=== PATIENT | female | born 1995 | race Caucasian/White ===

== ENCOUNTER 2017-08-28 09:38 | Emergency (ER) | payer BC ==
[~2017-08-28] VITALS: Ht 160 cm; Wt 44.6 kg
[~2017-08-28 09:38] MED LIST: BCPILLS PO
[2017-08-28 09:42] VITALS: Ht 160 cm; Wt 44.6 kg
[2017-08-28] MEDS ORDERED: METHYLPREDNISOLONE 125 MG VIAL IV STA (09:58)
[2017-08-28] MEDS ORDERED: ALBUT/IPRATROP 3MG/0.5MG NEB 3 ML VIAL INH ONE (10:00)
--- NOTE | 2017-08-28 10:21 | EMERGENCY ROOM VISIT NOTE ---
History Report prepared by Titus: Kevin Hobson Under the Supervision of: Dr. Augusto Smith M.D. First contact with patient: 09:50 Chief Complaint: RESPIRATORY PROBLEMS Stated Complaint: ASTHMA Nursing Triage Summary: Pt presents with c/o asthma exacerbation. Pt reports chest tightness, wheezing, NPC. Sx began 1.5 days ago. Used inhaler and neb without relief. History of Present Illness The patient is a 22 year old female who presents to the Emergency Room with complaints of worsening shortness of breath beginning two days ago. She also complains of chest "tightness" and mild cough. The patient has a history of asthma, and states that her current symptoms feel like an asthma exacerbation. She states that she has had a few asthma flare ups within the past few months. She has a rescue inhaler at home but states that nothing has improved her symptoms. The patient was seen at [facility] for her symptoms just prior to arrival and received a nebulizer treatment. She was referred to the ED for further evaluation after the nebulizer did not help her symptoms. She denies fevers, nausea, vomiting, diarrhea, headache, abdominal pain, leg swelling, sore throat , or urinary symptoms. The patient denies chance of . She denies recent travel. Source of History: patient Onset: Two days ago Quality: other (shortness of breath) Timing: worsening Modifying Factors (Relieving): other (none) Associated Symptoms: + cough (mild), + chest pain ("tightness"), No fevers, No headache, No nausea, No vomiting, No abdominal pain, No diarrhea, No urinary symptoms Note: The patient denies leg swelling. Review of Systems See HPI for pertinent positives & negatives. A total of 10 systems reviewed and were otherwise negative. Past Medical & Surgical Medical Problems: (1) UTI (urinary tract infection) Old medical records were attempted to be reviewed but there are no old records at this hospital. Nurse's notes were reviewed and I agree with. Family History No significant family history Social History Smoking Status: Never Smoker Drug Use: none Marital Status: single Housing Status: lives with friends Occupation Status: [employer] student Current/Historical Medications Scheduled Control Pills ( Control Pills), 1 TAB PO DAILY Bupropion (Wellbutrin), Unknown Dose PO DAILY Paroxetine (Paroxetine HCl), 30 MG PO DAILY Scheduled PRN Albuterol Sulf (Proventil 0.083% 2.5MG/3ML), 2.5 MG INH Q4 PRN for SOB/Wheezing Allergies Coded Allergies: NUTS (Unverified Allergy, Unknown, ANAPHYLAXIS, 08/28/17) WALNUT AND PECANS Physical Exam Vital Signs Date Time Temp Pulse Resp B/P (MAP) Pulse Ox O2 Delivery O2 Flow Rate FiO2 08/28/17 12:22 123 18 123/95 96 Room Air 08/28/17 11:21 37.0 124 18 124/99 99 Room Air 08/28/17 10:41 102 08/28/17 10:31 101 16 121/87 100 Room Air 5.0 08/28/17 10:26 100 16 99 Room Air 08/28/17 09:42 97 Room Air 08/28/17 09:42 36.8 116 20 115/73 96 Room Air Physical Exam General: Mildly-ill appearing young female in no acute distress. HEENT: Normal cephalic atraumatic. Pupils are equal round and reactive to light. Extraocular movements are intact. Oropharynx is pink with moist mucous membranes. No swelling of the mouth lips or tongue. Neck: Supple with a midline trachea. No meningeal signs or stiffness, no JVD or bruits. No Stridor. Chest: Scattered wheezing with decreased breath sounds. Heart: Tachycardic but regular. Abdomen: Soft nontender, nondistended without rebound guarding or rigidity. Extremities: No cyanosis clubbing or edema. No calf tenderness or assymetry Spine/Back. Non tender to palpation. No CVA tenderness Skin: Good turgor without rashes. Neurologic exam: Cranial nerves two through 12 are intact. Motor and sensation are intact and symmetrical throughout. Medical Decision & Procedures ER Provider Diagnostic Interpretation: Radiology results as stated below per my review and radiologist interpretation: SINGLE VIEW CHEST FINDINGS: An AP, portable, upright chest radiograph is obtained. No prior studies are available for comparison at the time of dictation. The examination is mildly degraded by portable technique and patient rotation. The cardiomediastinal silhouette is unremarkable. The lungs and pleural spaces are clear. No pneumothorax is seen. The bony thorax is grossly intact. Bilateral nipple piercings are noted. IMPRESSION: No active disease in the chest. Electronically signed by: Raymond Carvalho M.D. 08/28/2017 10:25 AM Laboratory Results 08/28/17 10:10 Red Blood Count 4.57, Mean Corpuscular Volume 84.7, Mean Corpuscular Hemoglobin 28.9, Mean Corpuscular Hemoglobin Concent 34.1, Mean Platelet Volume 8.6, Neutrophils (%) (Auto) 74.9, Lymphocytes (%) (Auto) 12.6, Monocytes (%) (Auto) 5.7, Eosinophils (%) (Auto) 6.2, Basophils (%) (Auto) 0.2, Neutrophils # (Auto) 13.39, Lymphocytes # (Auto) 2.26, Monocytes # (Auto) 1.01, Eosinophils # (Auto) 1.10, Basophils # (Auto) 0.04 08/28/17 10:10 Test 08/28/17 10:10 White Blood Count 17.87 K/uL (4.8-10.8) Red Blood Count 4.57 M/uL (4.2-5.4) Hemoglobin 13.2 g/dL (12.0-16.0) Hematocrit 38.7 % (37-47) Mean Corpuscular Volume 84.7 fL (80-100) Mean Corpuscular Hemoglobin 28.9 pg (25-34) Mean Corpuscular Hemoglobin Concent 34.1 g/dl (32-36) Platelet Count 449 K/uL (130-400) Mean Platelet Volume 8.6 fL (7.4-10.4) Neutrophils (%) (Auto) 74.9 % Lymphocytes (%) (Auto) 12.6 % Monocytes (%) (Auto) 5.7 % Eosinophils (%) (Auto) 6.2 % Basophils (%) (Auto) 0.2 % Neutrophils # (Auto) 13.39 K/uL (1.4-6.5) Lymphocytes # (Auto) 2.26 K/uL (1.2-3.4) Monocytes # (Auto) 1.01 K/uL (0.11-0.59) Eosinophils # (Auto) 1.10 K/uL (0-0.5) Basophils # (Auto) 0.04 K/uL (0-0.2) RDW Standard Deviation 45.1 fL (36.4-46.3) RDW Coefficient of Variation 14.5 % (11.5-14.5) Immature Granulocyte % (Auto) 0.4 % Immature Granulocyte # (Auto) 0.07 K/uL (0.00-0.02) D-Dimer 260 ug/L FEU (0-500) Anion Gap 8.0 mmol/L (3-11) Est Creatinine Clear Calc Drug Dose 79.0 ml/min Estimated GFR () 124.2 Estimated GFR (Non- 107.2 BUN/Creatinine Ratio 14.9 (10-20) Calcium Level 9.3 mg/dl (8.5-10.1) Human Chorionic Gonadotropin, Qual NEG (NEG) Laboratory studies as stated above per my review. Medications Administered Medications (Trade) Dose Ordered Sig/Mumtaz Route Start Time Stop Time Status Last Admin Dose Admin Methylprednisolone Sodium Succinate (Solu-Medrol IV) 125 mg NOW STAT IV 08/28/17 09:58 08/28/17 10:03 DC 08/28/17 10:11 125 MG Albuterol/ Ipratropium (Duoneb) 12 ml ONE ONCE INH 08/28/17 10:00 08/28/17 10:03 DC 08/28/17 10:25 12 ML ED Course 0951: Past medical records reviewed. The patient was evaluated in room C5, and a complete history and physical examination were performed. 0958: Ordered Solu-Medrol 125 mg IV. 1000: Ordered DuoNeb 12 mL INH. 1030: I reassessed the patient. She appears comfortable. 1120: I checked in on the patient. She is receiving her nebulizer treatment. 1205: Upon reevaluation, the patient is resting comfortably. I discussed the results and treatment plan with her. She verbalized agreement of the treatment plan. The patient was discharged home. Medical Decision Differentials include, but are not limited to; asthma exacerbation, pneumonia, pneumothorax, PE, infection and electrolyte or metabolic abnormality. This patient has a history of asthma and comes in after having an asthma exacerbation. She is short of breath. On exam she does have wheezes and diminished breath sounds although does not appear to be in any significant distress or hypoxemic. IV access established was given Solu-Medrol 125 mg IV. She was given an hour-long neb. Chest x-rays obtained as well as blood work. She was reassessed frequently. He is feeling significantly better. Chest x- ray was unremarkable and shows no pneumonia or pneumothorax or CHF. Her d- dimer is within normal limits and a low pretest probably said he makes PE highly unlikely. She's had no acute electrode or metabolic abnormalities. She' s had nothing to suggest infection. Her peak flow did improve from the 100s to over 220. She has no idea what her baseline is. I had her walk around the ER several times and she has no significant shortness breath she feels much better on exam she still some residual wheezes but is much moving much better air. I offered admission but she declines and think she is much better I did have her block and case maker help her arrange to get albuterol nebulizer home and wrote her for some prescription for this. She will also be started on prednisone 50 mg a day for the next 4 days starting tomorrow. She was happy with the plan and discharged home. She should return if worsening symptoms, shortness breath, any new problems or concerns Note: While dictating this chart around 6:30 PM I noted that I inadvertently left off the prescription for prednisone. I called and talked to the patient. She is doing well and feeling better. She gave me the contact information for her pharmacy and I called in the prednisone 50 mg for the next 4 days to [facility] pharmacy [address] she will pick it up and start this tomorrow. Medication Reconcilliation Current Medication List: was personally reviewed by me Blood Pressure Screening Patient's blood pressure: Normal blood pressure Blood pressure disposition: Did not require urgent referral Impression Primary Impression: Asthma exacerbation Additional Impression: Shortness of breath Scribe Attestation The scribe's documentation has been prepared under my direction and personally reviewed by me in its entirety. I confirm that the note above accurately reflects all work, treatment, procedures, and medical decision making performed by me. Departure Information Dispostion Home / Self-Care Prescriptions Albuterol Sulf (PROVENTIL 0.083% 2.5MG/3ML) 2.5 Mg/3 Ml Nebu 2.5 MG INH Q4 Y for SOB/Wheezing, #50 EA Prov: Augusto Smith M.D. 08/28/17 Referrals No Doctor, Assigned (PCP) Forms HOME CARE DOCUMENTATION FORM, IMPORTANT VISIT INFORMATION, WORK / SCHOOL INSTRUCTIONS Patient Instructions My [facility] [employer] Additional Instructions Rest. Drink plenty of fluids. Return if: Worsening of symptoms, increasing shortness of breath, any new problems or concerns continue to use your albuterol inhaler as needed Continue steroids with prednisone 50 mg once a day for 4 more days. Follow-up with the student [facility] on Thursday for recheck or return here over the weekend if symptoms worsen Problem Qualifiers
[2017-08-28 10:26] VITALS: PULSE 100; O2SAT 99
--- NOTE | 2017-08-28 10:27 | DIAGNOSTIC IMAGING REPORT ---
SINGLE VIEW CHEST CLINICAL HISTORY: Atypical chest pain. FINDINGS: An AP, portable, upright chest radiograph is obtained. No prior studies are available for comparison at the time of dictation. The examination is mildly degraded by portable technique and patient rotation. The cardiomediastinal silhouette is unremarkable. The lungs and pleural spaces are clear. No pneumothorax is seen. The bony thorax is grossly intact. Bilateral nipple piercings are noted. IMPRESSION: No active disease in the chest. Electronically signed by: Raymond Carvalho M.D. 08/28/2017 10:25 AM Dictated Date/Time: 08/28/2017 10:25 AM
[2017-08-28] MEDS ORDERED: BUPR75TA20 PO (10:32)
[2017-08-28] MEDS ORDERED: PXL20 PO (10:32)
[2017-08-28 10:38] LABS: BASO % 0.2 %; BASO ABS # 0.04 K/uL (0-0.2); EOS % 6.2 %; HEMATOCRIT 38.7 % (37-47); HEMOGLOBIN 13.2 g/dL (12.0-16.0); IG# 0.07 K/uL (0.00-0.02); LYMPH % 12.6 %; LYMPH ABS # 2.26 K/uL (1.2-3.4); MEAN CELL VOLUME 84.7 fL (80-100); MEAN CORPUSCULAR HEMOGLOBIN 28.9 pg (25-34); MEAN CORPUSCULAR HGB CONC 34.1 g/dl (32-36); MEAN PLATELET VOLUME 8.6 fL (7.4-10.4); MONO % 5.7 %; MONO ABS # 1.01 K/uL (0.11-0.59); NEUT % 74.9 %; NEUT ABS # 13.39 K/uL (1.4-6.5); PLATELET COUNT 449 K/uL (130-400); RED CELL DISTRIBUTION WIDTH CV 14.5 % (11.5-14.5); RED CELL DISTRIBUTION WIDTH SD 45.1 fL (36.4-46.3); WHITE BLOOD COUNT 17.87 K/uL (4.8-10.8)
[2017-08-28 10:54] LABS: CALCIUM 9.3 mg/dl (8.5-10.1); CREATININE 0.78 mg/dl (0.60-1.20); POTASSIUM 4.1 mmol/L (3.5-5.1)
[2017-08-28 11:21] VITALS: TEMP 37
[2017-08-28 12:22] VITALS: BP 123/95; PULSE 123; O2SAT 96
[2017-08-28] MEDS ORDERED: ALBINS/ INH (12:29)
== END 2017-08-28 12:51 | disposition home or self-care (01) ==
LOC: C.EDB 09:40 → C.EDC 12:51
DX: J45.901 Unspecified asthma with (acute) exacerbation (principal); Z87.440 Personal history of urinary (tract) infections; Z79.3 Long term (current) use of hormonal contraceptives; Z79.899 Other long term (current) drug therapy

== ENCOUNTER 2017-11-03 17:04 | Inpatient (IN) | payer BC ==
[~2017-11-03] VITALS: Ht 157.5 cm; Wt 44.5 kg
[~2017-11-03 17:04] MED LIST changes: +ALBINS/ INH; +BUPR75TA20 PO; +PXL20 PO
[2017-11-03] MEDS ORDERED: SODIUM CHLORIDE 0.9% 1000ML 1,000 ML IV STA (17:21)
[2017-11-03] MEDS ORDERED: METHYLPREDNISOLONE 125 MG VIAL IV STA (17:21)
[2017-11-03 17:24] VITALS: PULSE 147; O2SAT 94
[2017-11-03] MEDS ORDERED: ALBUT/IPRATROP 3MG/0.5MG NEB 3 ML VIAL INH ONE ×2 (17:30→20:00)
--- NOTE | 2017-11-03 17:32 | DIAGNOSTIC IMAGING REPORT ---
CHEST ONE VIEW PORTABLE HISTORY: 22 years-old Female a9b acute difficulty breathing COMPARISON: Chest radiograph 08/28/2017 TECHNIQUE: Portable AP view the chest FINDINGS: Cardiomediastinal and hilar silhouettes are within normal limits. No pneumothorax, pleural effusion, focal airspace consolidation or overt pulmonary edema. Bones of the chest appear grossly intact. Mild levoscoliosis of the lumbar spine is partially imaged. IMPRESSION: No acute process. The above report was generated using voice recognition software. It may contain grammatical, syntax or spelling errors. Electronically signed by: Jourdan Wesley M.D. 11/03/2017 5:30 PM Dictated Date/Time: 11/03/2017 5:29 PM
[2017-11-03 17:39] LABS: BASO % 0.3 %; BASO ABS # 0.06 K/uL (0-0.2); EOS % 0.9 %; EOS ABS # 0.15 K/uL (0-0.5); HEMATOCRIT 40.2 % (37-47); HEMOGLOBIN 13.7 g/dL (12.0-16.0); IG# 0.07 K/uL (0.00-0.02); LYMPH % 17.5 %; LYMPH ABS # 3.01 K/uL (1.2-3.4); MEAN CELL VOLUME 84.5 fL (80-100); MEAN CORPUSCULAR HEMOGLOBIN 28.8 pg (25-34); MEAN CORPUSCULAR HGB CONC 34.1 g/dl (32-36); MEAN PLATELET VOLUME 9.2 fL (7.4-10.4); MONO % 7.6 %; MONO ABS # 1.31 K/uL (0.11-0.59); NEUT % 73.3 %; NEUT ABS # 12.58 K/uL (1.4-6.5); PLATELET COUNT 460 K/uL (130-400); RED CELL DISTRIBUTION WIDTH CV 13.9 % (11.5-14.5); WHITE BLOOD COUNT 17.18 K/uL (4.8-10.8)
--- NOTE | 2017-11-03 17:44 | EMERGENCY ROOM VISIT NOTE ---
ED Visit Note First contact with patient: 17:16 CHIEF COMPLAINT: Shortness of breath, wheezing HISTORY OF PRESENTING ILLNESS: This is a 22-year-old female who presents to the emergency department with complaint of shortness of breath and wheezing for the past week. She states she has a history of asthma, she has been using her albuterol inhaler at home, but states she ran out yesterday. She states that her symptoms have gotten progressively worse and today she has been having a lot of trouble breathing and inability to catch her breath. She states this is her fourth asthma exacerbation in the past year, she was previously seen in this emergency department 2 months ago. She is not currently on any medications or daily inhalers to manage her asthma, and states that she does not have an established primary care provider at this time. She denies any recent fevers or chills, denies URI symptoms, denies chest pain, dizziness, or syncope. She denies any recent headaches, neck pain or stiffness, back pain, abdominal pain, nausea or vomiting, bowel or bladder issues, or unusual rash. She does not smoke. REVIEW OF SYSTEMS: A complete 10 point review of systems was reviewed with the patient with pertinent positives and negatives as per history of present illness. All else were negative. PAST MEDICAL HISTORY: Asthma SOCIAL HISTORY: Lives at home. She is a [employer] student. She denies tobacco use, alcohol or recreational drug use. ALLERGIES: Reviewed in chart. PHYSICAL EXAM: CONSTITUTIONAL: Pleasant and cooperative. Moderate respiratory distress noted with tachypnea, accessory muscle use, and tripod posturing. Mildly dehydrated. HEENT: Normocephalic, atraumatic. Pupils equal, round and reactive to light, EOMI. TMs normal. Pharynx normal. Tacky mucous membranes. NECK: Supple, full active range of motion without discomfort. No cervical adenopathy. RESPIRATORY: Significantly diminished to auscultation bilaterally with inspiratory and expiratory wheezing. No crackles, rhonchi or stridor. Tachypnea. Labored breathing with accessory muscle use. Speaking in short sentences. Equal expansion bilaterally. CARDIOVASCULAR: Significantly tachycardic. Regular rhythm with no murmurs, rubs or gallops. Normal peripheral perfusion. No edema. GASTROINTESTINAL: Soft, nontender, nondistended. No palpable masses or HSM. Bowel sounds present in all quadrants. MUSCULOSKELETAL: Full range of motion of all joints without discomfort. No calf swelling or tenderness. INTEGUMENTARY: No rash or other significant dermatologic conditions noted. NEUROLOGIC: Alert and oriented X 4 with normal affect. Normal strength and sensation in all 4 extremities. No focal neurologic deficits noted. Normal speech. ED COURSE AND MEDICAL DECISION MAKING: CC: Patient presenting with complaint of shortness of breath and wheezing DIFFERENTIAL DIAGNOSIS: Includes, but not limited to asthma exacerbation, acute respiratory failure, bronchitis, pneumonia, pneumothorax, PE, aspiration, among others. INTERPRETATION OF LABS: Leukocytosis, no anemia, no significant electrolyte abnormalities, normal renal function, normal liver enzymes. ABG pending. IMAGING: Chest x-ray reviewed by myself and radiologist and shows hyperventilation with no other acute abnormalities by my interpretation. EKG: Sinus tachycardia with a rate of 134bpm, left axis deviation by my interpretation. No previous EKGs available for comparison. MEDICATION RECONCILIATION: I attest that I have personally reviewed the patient 's current medication list. INITIAL VITAL SIGNS REVIEW: I reviewed the patient's initial vital signs and interpret them as follows: T: Afebrile; BP: Hypertensive; HR: Tachycardic; RR : Tachypneic; Pulse Ox: Hypoxic at 71% on room air, improved to 94% on 4 L nasal cannula. Blood pressure screening: The patient was found to have an elevated blood pressure and was referred to the inpatient team for further management. SUMMARY: Patient was evaluated at bedside, history and physical exam performed. Patient is alert and oriented, notably in respiratory distress with tachypnea, labored breathing, tripod posturing, and hypoxia on room air. Patient's oxygen saturation initially 71% on room air, she was placed on 4 L nasal cannula and improved to the low 90s. Lungs are significantly diminished on initial exam with inspiratory and expiratory wheezes. Patient was placed on hour-long DuoNeb treatment. IV established and she was given 125 mg of Solu-Medrol IV and 2g Mag Sulfate IV. NSS bolus started for hydration. EKG reviewed at bedside, noting sinus tachycardia. Patient was placed on the quality assurance monitor chassis and monitored throughout the entire extent of their stay. In addition, the patient's pulse oximetry was monitored throughout the entire stay. Any abnormalities or aberrancies were addressed appropriately. Patient was closely monitored at the bedside by myself, noting some improvement after neb treatment started. She is moving air better with increased expiratory wheezes heard, and states her breathing feels improved. Patient discussed with Dr. Lynn, who agrees with my assessment and plan. Labs and imaging reviewed as above, noting leukocytosis which is suspected to be stress-induced. No pneumonia on chest x-ray Patient symptoms are consistent with an acute exacerbation of severe recurrent asthma. Patient reassessed multiple times throughout ED stay, she does feel much improved compared to when she arrived, but continues with diffuse wheezing and noted to drop her sats to the low 80s when taken off of oxygen. I spoke with Dr. Goldman, [facility] hospitalist, who agrees to evaluate the patient for admission. Patient was updated on all results and plan for admission, she verbalized understanding and was agreeable to this plan. Patient was stable at time of admission. Problem List Medical Problems: (1) UTI (urinary tract infection) Status: Resolved Current/Historical Medications Scheduled Control Pills ( Control Pills), 1 TAB PO DAILY Bupropion (Wellbutrin), 75 MG PO DAILY Cholecalciferol (Vitamin D), 1 TAB PO DAILY Paroxetine (Paroxetine HCl), 30 MG PO DAILY Pyridoxine (Vitamin B6), 100 MG PO DAILY Scheduled PRN Albuterol Sulf (Proventil 0.083% 2.5MG/3ML), 2.5 MG INH QID PRN for SOB/Wheezing Allergies Coded Allergies: NUTS (Unverified Allergy, Unknown, ANAPHYLAXIS, 09/17/17) WALNUT AND PECANS Vital Signs Date Time Temp Pulse Resp B/P (MAP) Pulse Ox O2 Delivery O2 Flow Rate FiO2 11/03/17 21:59 128 24 114/77 95 11/03/17 20:04 128 24 95 Nasal Cannula 4.0 11/03/17 19:30 133 28 93 11/03/17 19:00 134 31 114/77 94 11/03/17 18:56 126 20 131/89 95 Nebulizer 11/03/17 18:39 148 18 115/75 95 Nebulizer 11/03/17 18:08 82 Room Air 11/03/17 17:58 150 28 118/83 95 Nebulizer 11/03/17 17:41 144 26 130/90 95 Nebulizer 11/03/17 17:35 95 11/03/17 17:24 147 22 94 Nasal Cannula 4.0 11/03/17 17:07 36.4 150 28 150/90 71 Room Air Laboratory Results 11/03/17 17:30 Red Blood Count 4.76, Mean Corpuscular Volume 84.5, Mean Corpuscular Hemoglobin 28.8, Mean Corpuscular Hemoglobin Concent 34.1, Mean Platelet Volume 9.2, Neutrophils (%) (Auto) 73.3, Lymphocytes (%) (Auto) 17.5, Monocytes (%) (Auto) 7.6, Eosinophils (%) (Auto) 0.9, Basophils (%) (Auto) 0.3, Neutrophils # (Auto) 12.58, Lymphocytes # (Auto) 3.01, Monocytes # (Auto) 1.31, Eosinophils # (Auto) 0.15, Basophils # (Auto) 0.06 11/03/17 17:30 Test 11/03/17 17:21 11/03/17 17:30 White Blood Count 17.18 K/uL (4.8-10.8) Red Blood Count 4.76 M/uL (4.2-5.4) Hemoglobin 13.7 g/dL (12.0-16.0) Hematocrit 40.2 % (37-47) Mean Corpuscular Volume 84.5 fL (80-100) Mean Corpuscular Hemoglobin 28.8 pg (25-34) Mean Corpuscular Hemoglobin Concent 34.1 g/dl (32-36) Platelet Count 460 K/uL (130-400) Mean Platelet Volume 9.2 fL (7.4-10.4) Neutrophils (%) (Auto) 73.3 % Lymphocytes (%) (Auto) 17.5 % Monocytes (%) (Auto) 7.6 % Eosinophils (%) (Auto) 0.9 % Basophils (%) (Auto) 0.3 % Neutrophils # (Auto) 12.58 K/uL (1.4-6.5) Lymphocytes # (Auto) 3.01 K/uL (1.2-3.4) Monocytes # (Auto) 1.31 K/uL (0.11-0.59) Eosinophils # (Auto) 0.15 K/uL (0-0.5) Basophils # (Auto) 0.06 K/uL (0-0.2) RDW Standard Deviation 43.0 fL (36.4-46.3) RDW Coefficient of Variation 13.9 % (11.5-14.5) Immature Granulocyte % (Auto) 0.4 % Immature Granulocyte # (Auto) 0.07 K/uL (0.00-0.02) Anion Gap 6.0 mmol/L (3-11) Est Creatinine Clear Calc Drug Dose 78.9 ml/min Estimated GFR () 113.5 Estimated GFR (Non- 98.0 BUN/Creatinine Ratio 12.8 (10-20) Calcium Level 9.3 mg/dl (8.5-10.1) Total Bilirubin 0.2 mg/dl (0.2-1) Aspartate Amino Transf (AST/SGOT) 37 U/L (15-37) Alanine Aminotransferase (ALT/SGPT) 31 U/L (12-78) Alkaline Phosphatase 76 U/L (45-117) Total Protein 7.8 gm/dl (6.4-8.2) Albumin 3.0 gm/dl (3.4-5.0) Globulin 4.8 gm/dl (2.5-4.0) Albumin/Globulin Ratio 0.6 (0.9-2) Medications Administered Medications (Trade) Dose Ordered Sig/Mumtaz Route Start Time Stop Time Status Last Admin Dose Admin Methylprednisolone Sodium Succinate (Solu-Medrol IV) 125 mg NOW STAT IV 11/03/17 17:21 11/03/17 17:26 DC 11/03/17 17:34 125 MG Albuterol/ Ipratropium (Duoneb) 12 ml ONE ONCE INH 11/03/17 17:30 11/03/17 17:31 DC 11/03/17 17:56 12 ML Sodium Chloride 1,000 ml @ 999 mls/hr Q1H1M STAT IV 11/03/17 17:21 11/03/17 18:21 DC 11/03/17 17:35 999 MLS/HR Magnesium Sulfate (Magnesium Sulfate) 2 gm NOW STAT IV 11/03/17 17:48 11/03/17 17:50 DC 11/03/17 18:14 2 GM Albuterol/ Ipratropium (Duoneb) 12 ml ONE ONCE INH 11/03/17 20:00 11/03/17 20:01 DC 11/03/17 20:04 12 ML Departure Information Impression Primary Impression: Asthma exacerbation Dispostion Admitted as an inpatient Condition FAIR Referrals No Doctor, Assigned (PCP) Patient Instructions My [facility] Problem Qualifiers Primary Impression: Asthma exacerbation Asthma severity: severe Asthma persistence: persistent Qualified Codes: J45.51 - Severe persistent asthma with (acute) exacerbation
[2017-11-03] MEDS ORDERED: MAGNESIUM SULFATE 1GM / D5W 1 GM BAG IV STA (17:48)
[2017-11-03 18:02] LABS: CALCIUM 9.3 mg/dl (8.5-10.1); CREATININE 0.84 mg/dl (0.60-1.20); POTASSIUM 4.5 mmol/L (3.5-5.1)
[2017-11-03 18:04] LABS: TOTAL PROTEIN 7.8 gm/dl (6.4-8.2)
--- NOTE | 2017-11-03 18:16 | EMERGENCY ROOM VISIT NOTE ---
ED Visit Note First contact with patient: 17:16 Patient seen and examined at bedside after discussion with the nurse practitioner due to concern for pain severe asthma exacerbation initially presenting with hypoxia. Patient improved able to talk in short sentences now that she is receiving continuous nebulizer treatments. She has received Solu- Medrol IV, and after discussion we will also add mag sulfate IV as well. Labs and chest x-ray are otherwise pending. Patient reports improvement at this time. After meds and continuous neb, pt still had oxygen desaturations Another continuous neb was started. No evidence of pneumonia,pneumothorax. Pt improved and reported improvement however given severity of this attack, recurrent hypoxia, and continued need for respiratory support and treatments, case was discussed with hospitalist for additional evaluation and treatment.
[2017-11-03] MEDS ORDERED: CHOL400T PO (19:27)
[2017-11-03] MEDS ORDERED: PYRI100T4 PO (19:27)
[2017-11-03] MEDS ORDERED: MoRPHine SULFATE 2 MG/ML CARP IV PRN (20:00)
[2017-11-03] MEDS ORDERED: ACETAMINOPHEN 325 MG TAB PO PRN (20:00)
[2017-11-03] MEDS ORDERED: MAGNESIUM HYDROXIDE SUSP 30 ML UDC PO PRN (20:00)
[2017-11-03] MEDS ORDERED: ALUMINUM/MAGNESIUM/SIMETH (MAALOX MAX) 30 ML UDC PO PRN (20:00)
[2017-11-03] MEDS ORDERED: IV FLUIDS COMPLETED PRN (20:00)
[2017-11-03] MEDS ORDERED: POLYETHYLENE (MIRALAX) 17 GM PACK PO PRN (20:00)
[2017-11-03] MEDS ORDERED: ONDANSETRON INJ 2 MG/ML 2 ML VIAL IV PRN (20:00)
[2017-11-03 20:04] VITALS: PULSE 128; O2SAT 95
--- NOTE | 2017-11-03 20:19 | History and Physical ---
History & Physical Date & Time of Service: Nov 03, 2017 at 20:03 Chief Complaint: Asthma Attack Primary Care Physician: Services,[facility] History of Present Illness Source: patient 22 y/o F Hx asthma, depression/anxiety. Presents with SOB, wheezing and was hypoxic on arrival to the ER. She has been struggling with asthma exacerbations for 4 months and states that prior to this period, her asthma was mild and had not normally required treatment. She responded partially to modalities provided in the ER but remains hypoxic without supplemental 02. She does not have a productive cough or fevers. She reports she relocated to [facility] approximately 4 months ago at the onset of her symptoms. Past Medical/Surgical History 1) Asthma - until recently, mild, intermittent 2) Depression 3) Anxiety 4) History of anorexia nervosa - states this mostly resolved in her mid teens Family History No significant family history Both parents are alive and well. Social History Nonsmoker - electrical engineering major at [employer] - to attend [employer] school next year Smoking Status: Never Smoker Drug Use: none Marital Status: single Occupational Status: [employer] student Allergies Coded Allergies: NUTS (Unverified Allergy, Unknown, ANAPHYLAXIS, 09/17/17) WALNUT AND PECANS Home Medications Scheduled Control Pills ( Control Pills), 1 TAB PO DAILY Bupropion (Wellbutrin), 75 MG PO DAILY Cholecalciferol (Vitamin D), 1 TAB PO DAILY Paroxetine (Paroxetine HCl), 30 MG PO DAILY Pyridoxine (Vitamin B6), 100 MG PO DAILY Scheduled PRN Albuterol Sulf (Proventil 0.083% 2.5MG/3ML), 2.5 MG INH QID PRN for SOB/Wheezing Review of Systems Constitutional: + weight loss (Reports weight loss due to resp discomfort over the past few months), No fever, No chills, No sweats Eyes: No worsening of vision ENT: No hearing loss, No unusual epistaxis, No nasal symptoms Respiratory: + wheezing, + shortness of breath, + dyspnea on exertion, + dyspnea at rest, No cough Cardiovascular: No chest pain, No orthopnea, No PND Abdomen: No pain, No nausea, No vomiting Musculoskeletal: No joint pain Genitourinary - Female: No dysuria, No urinary frequency, No urinary urgency Neurologic: No memory loss, No paralysis Psychiatric: No depression symptoms Endocrine: No fatigue Hematologic / Lymphatic: No abnormal bleeding/bruising Integumentary: No rash Physical Exam Vital Signs Date Time Temp Pulse Resp B/P (MAP) Pulse Ox O2 Delivery O2 Flow Rate FiO2 11/03/17 18:56 126 20 131/89 95 Nebulizer 11/03/17 18:39 148 18 115/75 95 Nebulizer 11/03/17 18:08 82 Room Air 11/03/17 17:58 150 28 118/83 95 Nebulizer 11/03/17 17:41 144 26 130/90 95 Nebulizer 11/03/17 17:35 95 11/03/17 17:24 147 22 94 Nasal Cannula 4.0 11/03/17 17:07 36.4 150 28 150/90 71 Room Air General Appearance: WD/WN, no apparent distress, + pertinent finding (Very thin young female - AAO x 3 - no distress) Head: normocephalic Eyes: normal inspection ENT: normal ENT inspection, pharynx normal Neck: supple, no JVD Respiratory/Chest: chest non-tender, + pertinent finding (poor air movement and wheezng throughout all lung [place] is appreciated ) Cardiovascular: regular rate, rhythm, no gallop, no JVD, + tachycardia Abdomen/GI: normal bowel sounds, non tender, soft Genitourinary - Female: external genitalia normal, normal pelvic exam Back: normal inspection, no CVA tenderness Extremities/Musculoskelatal: normal inspection, no calf tenderness, normal capillary refill Neurologic/Psych: 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, no motor/sensory deficits, alert, oriented x 3 Skin: normal color Diagnostics Laboratory Results Results Past 24 Hours Test 11/03/17 17:21 11/03/17 17:30 Range/Units White Blood Count 17.18 4.8-10.8 K/uL Red Blood Count 4.76 4.2-5.4 M/uL Hemoglobin 13.7 12.0-16.0 g/dL Hematocrit 40.2 37-47 % Mean Corpuscular Volume 84.5 80-100 fL Mean Corpuscular Hemoglobin 28.8 25-34 pg Mean Corpuscular Hemoglobin Concent 34.1 32-36 g/dl Platelet Count 460 130-400 K/uL Mean Platelet Volume 9.2 7.4-10.4 fL Neutrophils (%) (Auto) 73.3 % Lymphocytes (%) (Auto) 17.5 % Monocytes (%) (Auto) 7.6 % Eosinophils (%) (Auto) 0.9 % Basophils (%) (Auto) 0.3 % Neutrophils # (Auto) 12.58 1.4-6.5 K/uL Lymphocytes # (Auto) 3.01 1.2-3.4 K/uL Monocytes # (Auto) 1.31 0.11-0.59 K/uL Eosinophils # (Auto) 0.15 0-0.5 K/uL Basophils # (Auto) 0.06 0-0.2 K/uL RDW Standard Deviation 43.0 36.4-46.3 fL RDW Coefficient of Variation 13.9 11.5-14.5 % Immature Granulocyte % (Auto) 0.4 % Immature Granulocyte # (Auto) 0.07 0.00-0.02 K/uL Sodium Level 136 136-145 mmol/L Potassium Level 4.5 3.5-5.1 mmol/L Chloride Level 103 98-107 mmol/L Carbon Dioxide Level 27 21-32 mmol/L Anion Gap 6.0 3-11 mmol/L Blood Urea Nitrogen 11 7-18 mg/dl Creatinine 0.84 0.60-1.20 mg/dl Est Creatinine Clear Calc Drug Dose 78.9 ml/min Estimated GFR () 113.5 Estimated GFR (Non- 98.0 BUN/Creatinine Ratio 12.8 10-20 Random Glucose 122 70-99 mg/dl Calcium Level 9.3 8.5-10.1 mg/dl Total Bilirubin 0.2 0.2-1 mg/dl Aspartate Amino Transf (AST/SGOT) 37 15-37 U/L Alanine Aminotransferase (ALT/SGPT) 31 12-78 U/L Alkaline Phosphatase 76 45-117 U/L Total Protein 7.8 6.4-8.2 gm/dl Albumin 3.0 3.4-5.0 gm/dl Globulin 4.8 2.5-4.0 gm/dl Albumin/Globulin Ratio 0.6 0.9-2 CXR normal Impression Assessment and Plan 22 y/o F Hx asthma, depression/anxiety. Presents with SOB, wheezing and was hypoxic on arrival to the ER. She has been struggling with asthma exacerbations for 4 months and states that prior to this period, her asthma was mild and had not normally required treatment. She responded partially to modalities provided in the ER but remains hypoxic without supplemental 02. She does not have a productive cough or fevers. She reports she relocated to [facility] approximately 4 months ago at the onset of her symptoms. 1) Status asthmaticus - provided with an 02 protocol, albuterol, IV steroids - we have requested a pulmonary consult as her symptoms have pesisted for a few months and she does not have a standard outpt regimen or necessary follow-up. 2) Depression/anxiety - cont Bupropion. Paroxetine Full code - Lovenox prophylaxis Total time for this admit including review of labs, meds, imaging, records - discussion with pt and ER attending - 35 min Resuscitation Status VTE Prophylaxis Will order VTE Prophylaxis: Yes
[2017-11-03 22:30] VITALS: BP 108/69; TEMP 37; O2SAT 95; Ht 157.5 cm; Wt 44.5 kg
[2017-11-03 22:41] VITALS: BP 108/69; PULSE 148; TEMP 37; O2SAT 94
[2017-11-03] MEDS ORDERED: SODIUM CHLORIDE 0.9% 1000ML 1,000 ML IV SCH (23:00)
[2017-11-03 23:06] VITALS: PULSE 135; O2SAT 95
[2017-11-03] MEDS: ALBUTEROL 0.083% NEBU SOLN 3 ML VIAL INH SCH (23:06)
[2017-11-03] MEDS: ENOXAPARIN 40 MG/0.4 ML SYR SC SCH (23:42)
[2017-11-03] MEDS: METHYLPREDNISOLONE IV 40 MG in SYRINGE 0 ML IV SCH (23:42)
[2017-11-04] VITALS (12 sets, daily range): BP systolic 107–131; BP diastolic 60–81; PULSE 100–122; TEMP 36.4–37.1; O2SAT 93–96
[2017-11-04] MEDS: ALBUTEROL 0.083% NEBU SOLN 3 ML VIAL INH SCH ×2 (04:16→07:14)
[2017-11-04] MEDS: METHYLPREDNISOLONE IV 40 MG in SYRINGE 0 ML IV SCH ×4 (05:23→23:40)
[2017-11-04] MEDS ORDERED: PNEUMOCOCCAL POLYSACCHARIDES 25 MCG/0.5 ML VIAL/SYR IM. ONE (05:45)
[2017-11-04] MEDS ORDERED: PNEUMOCOCCAL ADMINISTRATION CHARGE ONE (05:45)
[2017-11-04 07:00] LABS: BLOOD UREA NITROGEN 8 mg/dl (7-18); CALCIUM 8.9 mg/dl (8.5-10.1); CARBON DIOXIDE 26 mmol/L (21-32); CREATININE 0.49 mg/dl (0.60-1.20); GLUCOSE 125 mg/dl (70-99); POTASSIUM 4.2 mmol/L (3.5-5.1); SODIUM 138 mmol/L (136-145)
[2017-11-04] MEDS: PAROXETINE 20 MG TAB PO SCH (07:36)
[2017-11-04] MEDS: PYRIDOXINE HCL 50 MG TAB PO SCH (07:36)
--- NOTE | 2017-11-04 09:15 | Clinical Documentation Query ---
CLINICAL DOCUMENTATION QUERY ED physician did specify type, chronicity, and severity of asthma. In order for a professional tig welder to code said diagnosis in must be stated by the attending. The addition of the type of asthma will not only lend specificity to the patient's diagnosis, but may qualify as a reimbursable diagnosis for an [facility] assignment. In your clinical opinion is this patient being managed for: (x ) Severe persistent asthma with status asthmaticus ( ) Not Agree ( ) Other explanation of clinical findings (Please Explain) ( ) Unable to determine (Please Define) ( ) Need to Discuss The options for asthma specificity include: 1.type: mild, moderate, severe 2.chronicity: intermittent, persistent 3.acuity: uncomplicated, exacerbated, w/ status asthmaticus Mild Persistent Asthma: People with mild persistent asthma typically have asthma symptoms that occur almost weekly, but a single controller medication is usually sufficient to gain control. Asthma severity is classified as mild persistent asthma when: *asthma symptoms occur more than 2 days per week, but not daily *wake up from asthma 3 to 4 nights per month *use rescue inhaler more than 2 days per week, but not daily *have only minor interference with daily activities *have a FEV1 greater than 80% of predicted or normal lung function most of the time Moderate Persistent Asthma: People with moderate persistent asthma typically have asthma symptoms that occur almost daily, but they are able to gain control of the asthma exacerbation with two medications. Asthma severity is classified as moderate persistent asthma when: *have asthma symptoms daily. *wake up from asthma more than one night per week, but not every night. *use rescue inhaler daily. *asthma moderately interferes with daily activities. *have a FEV1 greater than 60% but less than 80% of predicted Severe Persistent Asthma: People with severe persistent asthma typically have daily asthma symptoms despite attempting to gain control with more than 2 controller medications. Asthma severity is classified as severe persistent asthma when: *have asthma symptoms throughout the day *wake up from asthma nightly *use rescue inhaler multiple times per day *have extreme interference with daily activities *have a FEV1 less than 60% of predicted NHLBI Guidelines for the Diagnosis and Management of Asthma *It is imperative to include the specificity of a patient's asthma as clinically appropriate; including this important diagnosis in the patient's problem list, even if resolved at discharge, more accurately reflects the patient's severity of illness and risk of mortality. IF IN AGREEMENT, YOU MUST DOCUMENT ABOVE DIAGNOSTIC STATEMENT IN DAILY PROGRESS NOTES AND DISCHARGE SUMMARY. This document is not part of the patient's record. Thank You, Sajan Arshad, YANI [phone]
[2017-11-04] MEDS: IPRATROPIUM BROMIDE NEB SOLN 0.02% 2.5 ML VIAL INH SCH ×3 (11:12→19:01)
[2017-11-04] MEDS: LEVALBUTEROL 1.25MG/0.5ML NEB INH SCH ×3 (11:12→19:02)
--- NOTE | 2017-11-04 11:24 | Hospitalist Progress Note ---
Hospitalist Progress Note Date of Service Nov 04, 2017. (Natty Arshad PA-C) Subjective Pt evaluation today including: conversation w/ patient, physical exam, chart review, lab review, review of studies, conversation w/ economics consultant (Ramón Esquivel PA-C), review of inpatient medication list Pain: None PO Intake: Adequate Voiding: no voiding problems Patient seen and evaluated. No acute events overnight. Reporting some improvement with breathing since arriving however still with 4L NC. Appropriate oxygenation but is not feeling comfortable with weaning down. She is jittery which is likely the steroids and ventolin. Discussed with Ramón Esquivel PA-C and plan to switch to Xopenex and pending improvement can reduce steroids tomorrow. Patient states her asthma is normally controlled however has had frequent exacerbations the majority of this year. She does not know her triggers as she said her asthma is normally controlled. Question if this is mold in her apt? 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 Reports she is allergic to cats but no official allergy testing. Ramón Esquivel planning on utilizing maintenance therapy as outpatient. Constitutional: No fever, No chills Respiratory: + cough, + wheezing, + shortness of breath, No sputum, No hemoptysis Cardiovascular: No chest pain Abdomen: No pain, No nausea, No vomiting, No diarrhea, No constipation Musculoskeletal: No swelling, No calf pain Female : No dysuria Heme: No abnormal bleeding/bruising Skin: No rash (Natty Arshad PA-C) Medications Current Inpatient Medications Medications (Trade) Dose Ordered Sig/Mumtaz Route Start Time Stop Time Status Last Admin Dose Admin Enoxaparin Sodium (Lovenox Inj) 40 mg QPM SC 11/03/17 23:00 12/03/17 22:59 11/03/17 23:42 40 MG Acetaminophen (Tylenol Tab) 650 mg Q4H PRN PO 11/03/17 20:00 12/03/17 19:59 Al Hydrox/Mg Hydrox/Simethicone (Maalox Max Susp) 15 ml Q4H PRN PO 11/03/17 20:00 12/03/17 19:59 Magnesium Hydroxide (Milk Of Magnesia Susp) 30 ml Q12H PRN PO 11/03/17 20:00 12/03/17 19:59 Zolpidem Tartrate (Ambien Tab) 5 mg HSZ PRN PO 11/03/17 20:00 12/03/17 19:59 Ondansetron HCl (Zofran Inj) 4 mg Q6H PRN IV 11/03/17 20:00 12/03/17 19:59 Morphine Sulfate (MoRPHine SULFATE INJ) 2 mg Q30M PRN IV 11/03/17 20:00 11/17/17 19:59 Polyethylene (Miralax Powder Packet) 17 gm DAILY PRN PO 11/03/17 20:00 12/03/17 19:59 Methylprednisolone Sodium Succinate 40 mg/Syringe 0.64 ml @ 1.5 mls/min Q6H IV 11/03/17 23:00 12/03/17 22:59 11/04/17 05:23 1.5 MLS/MIN Miscellaneous (Iv Fluids Completed) 1 ea PRN PRN N/A 11/03/17 20:00 11/03/18 19:59 Bupropion HCl (Wellbutrin Tab) 75 mg DAILY PO 11/04/17 09:00 12/04/17 08:59 11/04/17 07:36 75 MG Paroxetine HCl (pAXil TAB) 30 mg DAILY PO 11/04/17 09:00 12/04/17 08:59 11/04/17 07:36 30 MG Pyridoxine HCl (Vitamin B-6 Tab) 100 mg DAILY PO 11/04/17 09:00 12/04/17 08:59 11/04/17 07:36 100 MG Ipratropium [place] (Atrovent 0.02% 0.5MG/2.5ML Neb) 0.5 mg Q4RWA INH 11/04/17 12:00 12/04/17 11:59 Levalbuterol (Xopenex 1.25MG/ 0.5ML Neb) 1.25 mg Q4RWA INH 11/04/17 12:00 12/04/17 11:59 (Natty Arshad PA-C) Objective Vital Signs Date Time Temp Pulse Resp B/P (MAP) Pulse Ox O2 Delivery O2 Flow Rate FiO2 11/04/17 08:00 Nasal Cannula 4.0 11/04/17 07:14 37.1 101 18 121/77 (92) 96 Nasal Cannula 4.0 11/04/17 07:14 120 20 96 Nasal Cannula 4.0 11/04/17 04:26 36.5 113 20 114/77 (89) 96 Nasal Cannula 4.0 11/04/17 04:16 122 22 96 Nasal Cannula 4.0 11/04/17 04:00 95 Nasal Cannula 4.0 11/04/17 00:05 95 Nasal Cannula 4.0 11/03/17 23:06 135 26 95 Nasal Cannula 4.0 11/03/17 22:41 37.0 148 32 108/69 (82) 94 Nasal Cannula 4.5 11/03/17 22:30 37.0 26 108/69 95 Nasal Cannula 4.0 11/03/17 21:59 128 24 114/77 95 11/03/17 20:04 128 24 95 Nasal Cannula 4.0 11/03/17 19:30 133 28 93 11/03/17 19:00 134 31 114/77 94 11/03/17 18:56 126 20 131/89 95 Nebulizer 11/03/17 18:39 148 18 115/75 95 Nebulizer 11/03/17 18:08 82 Room Air 11/03/17 17:58 150 28 118/83 95 Nebulizer 11/03/17 17:41 144 26 130/90 95 Nebulizer 11/03/17 17:35 95 11/03/17 17:24 147 22 94 Nasal Cannula 4.0 11/03/17 17:07 36.4 150 28 150/90 71 Room Air (Natty Arshad, PA-C) Physical Exam General Appearance: WD/WN, + mild distress (coughing/jittery), + thin Eyes: sclerae normal ENT: hearing grossly normal Neck: supple, no JVD, trachea midline Respiratory/Chest: + respiratory distress (mild), + pertinent finding (poor aeration diffusely with insp/exp. wheeze diffusely) Cardiovascular: no gallop, no murmur, + tachycardia Abdomen: normal bowel sounds, non tender, soft Extremities: no pedal edema Neurologic/Psychiatric: alert Skin: normal color, warm/dry (Natty Arshad, PA-C) Laboratory Results Last 24 Hours Test 11/03/17 17:30 11/03/17 22:48 11/04/17 06:06 White Blood Count 17.18 K/uL Red Blood Count 4.76 M/uL Hemoglobin 13.7 g/dL Hematocrit 40.2 % Mean Corpuscular Volume 84.5 fL Mean Corpuscular Hemoglobin 28.8 pg Mean Corpuscular Hemoglobin Concent 34.1 g/dl Platelet Count 460 K/uL Mean Platelet Volume 9.2 fL Neutrophils (%) (Auto) 73.3 % Lymphocytes (%) (Auto) 17.5 % Monocytes (%) (Auto) 7.6 % Eosinophils (%) (Auto) 0.9 % Basophils (%) (Auto) 0.3 % Neutrophils # (Auto) 12.58 K/uL Lymphocytes # (Auto) 3.01 K/uL Monocytes # (Auto) 1.31 K/uL Eosinophils # (Auto) 0.15 K/uL Basophils # (Auto) 0.06 K/uL RDW Standard Deviation 43.0 fL RDW Coefficient of Variation 13.9 % Immature Granulocyte % (Auto) 0.4 % Immature Granulocyte # (Auto) 0.07 K/uL Sodium Level 136 mmol/L 138 mmol/L Potassium Level 4.5 mmol/L 4.2 mmol/L Chloride Level 103 mmol/L 104 mmol/L Carbon Dioxide Level 27 mmol/L 26 mmol/L Anion Gap 6.0 mmol/L 8.0 mmol/L Blood Urea Nitrogen 11 mg/dl 8 mg/dl Creatinine 0.84 mg/dl 0.49 mg/dl Est Creatinine Clear Calc Drug Dose 78.9 ml/min 125.7 ml/min Estimated GFR () 113.5 > 150.0 Estimated GFR (Non- 98.0 137.3 BUN/Creatinine Ratio 12.8 16.6 Random Glucose 122 mg/dl 125 mg/dl Calcium Level 9.3 mg/dl 8.9 mg/dl Total Bilirubin 0.2 mg/dl Aspartate Amino Transf (AST/SGOT) 37 U/L Alanine Aminotransferase (ALT/SGPT) 31 U/L Alkaline Phosphatase 76 U/L Total Protein 7.8 gm/dl Albumin 3.0 gm/dl Globulin 4.8 gm/dl Albumin/Globulin Ratio 0.6 Arterial Blood pH 7.39 Arterial Blood Partial Pressure CO2 42 mmHg Arterial Blood Partial Pressure O2 92 mm/Hg Arterial Blood HCO3 25 mmol/L Arterial Blood Oxygen Saturation 96.8 % Arterial Blood Base Excess 0.0 mEq/L Arterial Blood Gas Delivery 4 L Wilder Test POS Magnesium Level 2.4 mg/dl (Natty Arshad PA-C) Assessment and Plan 22 y/o F Hx asthma, depression/anxiety. Presents with SOB, wheezing and was hypoxic on arrival to the ER. She has been struggling with asthma exacerbations for 4 months and states that prior to this period, her asthma was mild and had not normally required treatment. She responded partially to modalities provided in the ER but remains hypoxic without supplemental 02. She does not have a productive cough or fevers. She reports she relocated to [facility] approximately 4 months ago at the onset of her symptoms. 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 - Solu-Medrol 40 mg IV Q6H and likely can reduce tomorrow pending clinical course - Xopenex and Atrovent nebs given tachycardia and jitters - Pulmonology following - discussed with Ramón Esquivel PA-C - plan as above and planning to establish as outpatient and planning for maintenance therapy Anxiety/Depression: - Has H/O anorexia nervosa - resolved however BMI 18 - Wellbutrin 75 mg daily and Paxil 30 mg daily DVT Prophylaxis: Lovenox 40 mg SC daily Disposition: - Await clinical improvement - anticipate LOS to be 3-4 days possible Continued [facility] stay due to: multiple IV medications needed Discharge planning: home (Natty Arshad PA-C) Reviewed: Pt Seen/Exam by Me (Velia Aguayo MD) History Physician Production Reproduction Manager Supervision Note: I interviewed and examined the patient. Discussed with GUI Arshad and agree with findings and plan as documented in the note. Any exceptions or clarifications are listed here: Pt doesn't feel her breathing is much better yet but is weaned down to 2LNC and sats in 90s. Some coughing, not much sputum. Vitals reviewed Thin, anxious appearing, NAD Reg rhythm, tachycardia Lungs with poor air movement throughout, breathing not labored, no accessory muscle use, some faint wheezes Abd +BS soft NT ND Ext no edema 22 yo female with severe persistent asthma here with status asthmaticus. -continue nebs, steroids, O2, peak flows at 190 currently -Appreciate Pulm consult Anxiety-is actually on Wellbutrin XL 150mg once daily-changed in home med rec and here -continue Paxil Documented By: Velia Aguayo (Velia Aguayo MD)
--- NOTE | 2017-11-04 11:36 | CONSULTATION REPORT ---
DATE OF CONSULTATION: 11/04/2017 PULMONARY CONSULTATION REASON FOR CONSULTATION: 1. Dyspnea. 2. Severe uncontrolled asthma with exacerbation. 3. Hypoxia. 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 The patient apparently has had a greater than 1 week history of increased shortness of breath and wheezing. She had been using her albuterol inhaler as well as her albuterol nebulizer fairly often and unfortunately ran out of her medicine about 24 hours prior to presentation to the ER. Over the 24 hours, she became much more short of breath and her wheezing worsened. She states that she was having a little bit of cough. She will get a very small amount of yellow mucus up when she does cough and she states that this is not very often. There is no blood in the mucus. She has not had any fever or chills. With this, she states that she does get some sweats and feels warm just when she is coughing, but then it goes away as soon as she has done. She has not had any chest pain or pressure with this. She denied any chest heaviness or tightness. She has not had any dizziness, no lightheadedness, no unusual headache. She has not had any neck pain or stiffness in her neck. No muscle aches or pains, no back pain. She denies any palpitations. She states that her heart has been racing, but she is not sure how fast it has gone. She had not been having any GI difficulties. No abdominal pain, no nausea or vomiting. No problems with ingestion or heartburn. She has not had any difficulties with coughing or choking when she eats or drinks. No change in her bowels. No difficulty voiding. She states that her periods have been regular and her last menstrual cycle was approximately a week ago. She was diagnosed with asthma at approximately age 10 and this was because of frequent coughing and wheezing. She never had a PFT done that she remembers and she was only started on albuterol. She states that it was felt to be a reaction to cats because her family members all had cats and that seemed to be the trigger for her. She never had allergy testing done. She states that her breathing had been controlled for several years up until about 4 months ago. Over the past 4 months, she has been in the ER multiple times and this is the first time she has been admitted because of her breathing. In the ER, she was given 125 mg of Solu-Medrol. She was also given an hour long nebulizer treatment. She was found to be hypoxic with an O2 saturation of 71% on room air and she was started on 4 liters. She did have a chest x-ray done in the Emergency Room. No evidence of any consolidation or infiltrate. It does show some flattening of the diaphragm and hyperinflation. She had an EKG done which showed a sinus tachycardia at 134. LABORATORY DATA: Labs showed a white count of 17,000, platelet count 460,000, H and H was unremarkable. She had a blood gas showing a pH of 7.39, pCO2 of 42, pO2 of 92 on the 4 liters. When talking with her today, the patient feels that she is doing a little bit better, she is not as tight in her chest, although she still is having a lot of wheezing. She is not really having much cough or congestion. She feels that the steroids and the oxygen are helping her and make her feel better. She has been getting albuterol nebulizer every 4 hours and she feels that this has been helpful as well. She is a lifelong nonsmoker. She is a senior at [employer], studying chemical engineering and she will be graduating in the spring and she has already been admitted to [employer] in the fall for her master's. PAST MEDICAL HISTORY: Includes asthma, anxiety and depression. The patient does have a history of anorexia in her mid teens. PAST SURGICAL HISTORY: None. The patient has not had any surgeries. FAMILY HISTORY: Includes hypertension and diabetes. SOCIAL HISTORY: The patient is a lifelong nonsmoker. No alcohol, no street drugs. She is a student at [employer], studying electrical engineering. Currently, she lives in an apartment in [facility]. She is originally from [place]. No significant travel history. HOME MEDICATIONS: Include oral contraceptive pill, Wellbutrin 75 mg daily, vitamin D 1 tablet daily, paroxetine 30 mg daily, vitamin B6 100 mg daily, albuterol via nebulizer every 4-6 hours as needed. ALLERGIES: TO NUTS. REVIEW OF SYSTEMS: As above, otherwise unremarkable. PHYSICAL EXAMINATION: GENERAL: The patient is a 22-year-old female lying in bed. She does have oxygen on. She does not appear in any acute distress. She is able to complete sentences without dyspnea. She is alert and oriented x3. Mood is good. Affect is slightly anxious, but good overall. VITAL SIGNS: Temp 37.1, pulse 101, respirations 18, blood pressure 121/77, pulse ox 96% on 4 liters. HEENT: Normocephalic, atraumatic. Pupils equal, round, reactive to light and accommodation. Extraocular movements are intact. [place], moist gingival and buccal mucosa. NECK: Thin, supple. No mass, no adenopathy, no bruit. No tenderness to palpation. CHEST: The patient has decreased breath sounds bilaterally. She has diffuse wheezing primarily with exhalation, although she does have a few scattered inhaled wheezes bilaterally as well. Fair air movement throughout. CARDIOVASCULAR: Regular rate and rhythm. There are no murmurs, gallops or rubs noted. ABDOMEN: Bowel sounds present. Abdomen is soft, nontender. No guarding, rigidity or organomegaly. EXTREMITIES: No erythema or edema. NEUROLOGIC: Cranial nerves II through XII are intact. No focal deficits noted. LABORATORY DATA: Shows a white count on November 03 of 17,000, H and H on November 03 of 13.7 and 40.2, platelet count on November 03 of 460,000. ABG, pH 7.39, pCO2 of 42, pO2 of 92. This is on 4 liters. Renal profile is unremarkable. Chest x-ray, no infiltrate noted, does show some flattening of the diaphragms and hyperinflation. IMPRESSION AND PLAN: This is a 22-year-old female who was admitted through the Emergency Room with dyspnea, severe asthma with exacerbation and hypoxemia. At this point, the patient is receiving treatment for her asthma exacerbation. At this point, she does appear to be slightly improved compared to what I can glean from the information from when she presented to the Emergency Room. For now, I would recommend to continue her Solu-Medrol at 40 q. 6 hours. I am going to change her nebulizer to levalbuterol and ipratropium to hopefully help with her breathing as well as decrease her tachycardia. I would like to decrease her oxygen to 3 liters per minute to see if she tolerates this. At some point before she goes home, would recommend that we get her started on a maintenance inhaled corticosteroid LABA combination. She will need renewal of her nebulizer medication prior to going home. She is also going to need a pulmonary function test in light of her reporting that she had reaction to cats, it may be prudent to get her set up with an allergy evaluation as an outpatient as well. At this point, we will continue monitoring her and we will reevaluate in the morning if she is doing better. At that point we can consider decreasing her steroids. The patient actually did ask me if she is going to be going home today. I did inform her that with her current oxygen requirement as well as her current level of steroids that it would not be advisable to send her home today. I did give her a tentative possibility of Thursday as a potential discharge day, although she realizes that this will depend on how she responds. Patient was seen and examined. Patient have stable vital signs but notably you was having inspiratory and expiratory wheezing and describing severe fatigue. She did note she was having some mild improvement in her respiratory status. This time the patient should continue on her current medical regimen as well as peak flow monitoring. I had a long discussion with the patient and her mother who was at the bedside about workup for allergens as well as starting to recognize triggers in her environment. JONATHAN
[2017-11-04] MEDS ORDERED: LEVALBUTEROL/IPRATROPIUM NEB INH SCH (12:00)
[2017-11-04] MEDS: LORAZEPAM 0.5 MG TAB PO PRN (16:34)
[2017-11-04] MEDS ORDERED: BUPRTAB PO (20:09)
[2017-11-04] MEDS: ENOXAPARIN 40 MG/0.4 ML SYR SC SCH (20:39)
[2017-11-04] MEDS: ZOLPIDEM TARTRATE 5 MG TAB PO PRN (20:41)
[2017-11-05] VITALS (11 sets, daily range): BP systolic 110–129; BP diastolic 73–83; PULSE 82–112; TEMP 36.4–36.8; O2SAT 92–99
[2017-11-05] MEDS: METHYLPREDNISOLONE IV 40 MG in SYRINGE 0 ML IV SCH (05:31)
[2017-11-05] MEDS: LEVALBUTEROL 1.25MG/0.5ML NEB INH SCH ×3 (06:56→19:26)
[2017-11-05] MEDS: IPRATROPIUM BROMIDE NEB SOLN 0.02% 2.5 ML VIAL INH SCH ×3 (06:56→19:26)
[2017-11-05] MEDS: BuPROPion XL 150 MG TABCR PO SCH (07:59)
[2017-11-05] MEDS: PAROXETINE 20 MG TAB PO SCH (07:59)
[2017-11-05] MEDS: PYRIDOXINE HCL 50 MG TAB PO SCH (07:59)
[2017-11-05] MEDS ORDERED: LEVALBUTEROL 1.25MG/3ML NEB INH PRN (10:30)
--- NOTE | 2017-11-05 11:14 | PROGRESS NOTE ---
DATE: 11/05/2017 PROBLEM LIST: Severe uncontrolled asthma exacerbation and hypoxemia. SUBJECTIVE: The patient reports that today she is doing better. In regards to her breathing, she has not noticed as much wheezing. She feels like her chest is looser. She is not having the tightness in her chest that she was having previously. She has no chest discomfort at this time. She does have an occasional cough, although she is not really bringing up any mucus. She is using the nebulizer and feels like the nebulizers have been helpful for her. She denies any other respiratory problems. She is not using the oxygen at this time. She did have trouble sleeping last night. She felt that the combination of the steroids and nebulizer are very, very shaky. She had difficulty sleeping. She did end up using Ambien, which eventually did help her get to sleep. She denies any other problems. No headache or lightheadedness. No GI issues. No nausea or vomiting. No indigestion or heartburn. No difficulty with bowel or bladder. No difficulty with swelling. OBJECTIVE: GENERAL: The patient is a 22-year-old female, lying in bed, in no acute distress, no respiratory distress. She is able to complete sentences without difficulty. She is alert and oriented x3. Mood is good. Affect is good. VITAL SIGNS: Temp 36.4, pulse 93, respiration 18, blood pressure 118/73, pulse ox 98% on room air. HEENT: Normocephalic, atraumatic. Pupils equal, round and reactive to light and accommodation. Extraocular movements are intact. [place] moist gingival and buccal mucosa. NECK: Thin, no mass, no adenopathy or bruit noted. Good range of motion. CHEST: Improved breath sounds compared to yesterday. Wheezing is almost entirely cleared up. She did have a little bit of coarser sounding wheeze in the left upper chest posteriorly. This was just on exhalation. No rale or rhonchi noted. CARDIOVASCULAR: Regular rate and rhythm. There are no murmurs, gallops or rubs. ABDOMEN: Flat. Bowel sounds are present. Abdomen soft, nontender. EXTREMITIES: No erythema or edema. NEUROLOGIC: Cranial nerves II through XII are intact. No focal deficit noted. No new lab data. No new imaging data. IMPRESSION: This is a 22-year-old female who was admitted for uncontrolled severe asthma with exacerbation. At this point, I would like for her to have her steroids decreased to make sure that she tolerates it well in anticipation of potential discharge tomorrow. I would also like for her to start on Symbicort 160/4.5 one puff twice daily. We will have her start on this tomorrow morning. We would recommend that she have a spacer with this. We will continue rest of her medications as they are. Although, we will switch her nebulizer treatments to every 6 hours instead of every 4 and see if this helps with some of the shakiness that she has been having. Overall, there has been a significant improvement and we would anticipate that she would be ready for discharge tomorrow. She will need followup on pulmonary office after her discharge, we can work on getting this set up as well. Patient seen and case reviewed and plan agreed upon. JONATHAN
--- NOTE | 2017-11-05 11:21 | Hospitalist Progress Note ---
Hospitalist Progress Note Date of Service Nov 05, 2017. (Natty Arshad PA-C) Subjective Pt evaluation today including: conversation w/ patient, conversation w/ family , physical exam, chart review, lab review, review of inpatient medication list Pain: None PO Intake: Fair Voiding: no voiding problems Patient seen and evaluated. Discussed with patient and mother at bedside. Patient feeling better today just more exhausted as the nebs and steroids have made her restless. Breathing is much better and she is not requiring supplemental O2 at this point. Hasn't really ambulated today but was more SOB yesterday when doing this. Steroids are being reduced at this time. Constitutional: + fatigue, No fever, No chills Respiratory: + cough, + wheezing, No sputum, No shortness of breath Cardiovascular: No chest pain Abdomen: No pain, No nausea, No vomiting, No diarrhea, No constipation Musculoskeletal: No swelling Female : No dysuria, No urinary frequency Psychiatric: + anxiety (jitters) Heme: No abnormal bleeding/bruising (Natty Arshad PA-C) Objective Vital Signs Date Time Temp Pulse Resp B/P (MAP) Pulse Ox O2 Delivery O2 Flow Rate FiO2 11/05/17 08:00 99 Room Air 2.0 11/05/17 07:26 36.4 93 18 118/73 (88) 98 Room Air 11/05/17 06:56 88 20 99 Nasal Cannula 2.0 11/05/17 04:05 36.8 82 16 115/76 (89) 96 2.0 11/05/17 04:05 Nasal Cannula 2.0 11/05/17 00:05 Nasal Cannula 2.0 11/04/17 23:50 36.8 113 20 110/60 (77) 93 Nasal Cannula 2.0 11/04/17 21:05 37.1 113 19 107/63 (78) 94 Nasal Cannula 2.0 11/04/17 20:00 Nasal Cannula 2.0 11/04/17 17:35 94 Nasal Cannula 2.0 11/04/17 16:33 36.4 101 20 126/81 (96) 93 Room Air 11/04/17 16:00 94 Nasal Cannula 2.0 11/04/17 12:00 Nasal Cannula 4.0 11/04/17 11:49 36.8 105 20 131/76 (94) 93 Nasal Cannula 4.0 (Natty Arshad PA-C) Physical Exam General Appearance: WD/WN, no apparent distress Eyes: sclerae normal ENT: hearing grossly normal Neck: supple, no JVD, trachea midline Respiratory/Chest: no respiratory distress, no accessory muscle use, + pertinent finding (airways with much better aeration compared to 11/04 but still somewhat diminished but wheezing appreciated) Cardiovascular: no gallop, no murmur, + tachycardia Abdomen: normal bowel sounds, non tender, soft Extremities: no pedal edema Neurologic/Psychiatric: alert, oriented x 3 Skin: normal color, warm/dry (Natty Arshad, REINAC) Assessment and Plan 22 y/o F Hx asthma, depression/anxiety. Presents with SOB, wheezing and was hypoxic on arrival to the ER. She has been struggling with asthma exacerbations for 4 months and states that prior to this period, her asthma was mild and had not normally required treatment. She responded partially to modalities provided in the ER but remains hypoxic without supplemental 02. She does not have a productive cough or fevers. She reports she relocated to [facility] approximately 4 months ago at the onset of her symptoms. Acute Hypoxic Respiratory Failure 2/2 Severe Persistent Asthma with Status Asthmaticus: IMPROVING - Still continues with SOB but much improved. Appropriate sats on RA at this time - Solu-Medrol 20 mg IV Q8H and likely continue tapering - Xopenex and Atrovent nebs - Pulmonology following - plan as above and planning to establish as outpatient and planning for maintenance therapy -- F/U appointment already established Sinus Tachycardia 2/2 Nebs/Steroids and Anxiety: - Improving but remains tachy without any other arrhythmia Anxiety/Depression: - Has H/O anorexia nervosa - resolved however BMI 18 - Wellbutrin 150 mg daily and Paxil 30 mg daily; Can use low dose Ativan PRN for further anxiety DVT Prophylaxis: Lovenox 40 mg SC daily Disposition: - Clinically improving but still in acute exacerbation - possible D/C next 1-2 days Continued [facility] stay due to: multiple IV medications needed Discharge planning: home (Natty Arshad PA-C) Attending Attestation - Pt seen/examined, chart reviewed, care plan d/w GUI Arshad. I agree w/ the ramirez components of her documentation. Pt feeling better. Less cough, less dyspnea. Mother & her confirm h/o allergies but no formal testing. C/o anxiety. Asks that paxil be increased to 40mg daily. Has not been in counseling recently. Denies tobacco. VSS but mild tachycardia gen - nad heart - tachy, s1, s2 lungs - mild end-exp wheezes, good airation, no increased WOB abd - soft, NT ext - no edema A/P: 1. asthma with exacerbation - improving; wean steroids; pulm toilet 2. anxiety d/o - increase paxil to 40mg daily; check TSH in am 3. check urine HCG test 4. h/o anorexia - check TSH, vit D, Fe studies in am 5. allergies - start beltran 60mg BID her mother was updated Veronica LEWIS MD (Yassine Lewis MD)
[2017-11-05] MEDS: LORAZEPAM 0.5 MG TAB PO PRN (12:17)
[2017-11-05] MEDS: METHYLPREDNISOLONE IV 20 MG in SYRINGE 0 ML IV SCH ×2 (14:13→21:31)
[2017-11-05] MEDS: FEXOFENADINE HCL 60 MG TAB PO SCH (21:29)
[2017-11-05] MEDS: ZOLPIDEM TARTRATE 5 MG TAB PO PRN (21:29)
[2017-11-05] MEDS: ENOXAPARIN 40 MG/0.4 ML SYR SC SCH (21:30)
[2017-11-06 04:32] VITALS: BP 112/74; PULSE 66; TEMP 37; O2SAT 93
[2017-11-06] MEDS: METHYLPREDNISOLONE IV 20 MG in SYRINGE 0 ML IV SCH (05:49)
[2017-11-06 07:39] VITALS: PULSE 99; O2SAT 97
[2017-11-06] MEDS: LEVALBUTEROL 1.25MG/0.5ML NEB INH SCH (07:39)
[2017-11-06] MEDS: IPRATROPIUM BROMIDE NEB SOLN 0.02% 2.5 ML VIAL INH SCH (07:39)
[2017-11-06 08:00] VITALS: O2SAT 97
[2017-11-06 08:15] VITALS: BP 133/83; PULSE 65; TEMP 36.9; O2SAT 96
[2017-11-06] MEDS ORDERED: ALBINS/ INH (08:22)
[2017-11-06] MEDS ORDERED: SYMIN INH (08:22)
[2017-11-06] MEDS ORDERED: PRX/40 PO (08:22)
[2017-11-06] MEDS ORDERED: ALL60 PO (08:22)
[2017-11-06] MEDS ORDERED: PRVHFAIN INH (08:27)
--- NOTE | 2017-11-06 08:37 | Discharge Instructions ---
Discharge Instructions Date of Service Nov 06, 2017. Admission Reason for Admission: Status Asthmaticus Discharge Discharge Diagnosis / Problem: Asthma Exacerbation - Status Asthmaticus Discharge Goals Goal(s): Decrease discomfort, Improve function, Increase independence Activity Recommendations Activity Limitations: resume your previous activity . Instructions / Follow-Up Instructions / Follow-Up Asthma Exacerbation: - Gave a prescription to renew your nebulizer medicine and recommend to continue to use this when needed for shortness of breath or wheezing - Will also give a prescription for a rescue inhaler so you can have this on you with traveling or when going to class and can use 2 puffs up to four times a day when needed -- Recommend to keep track of how often you are using your rescue inhaler. If you notice you are using this (or your nebulizer) more than four times a day it could be a sign you are starting to have an exacerbation - Will also taper down on steroids over the next couple days. -- Prednisone 40 mg (4 tablets) x 2 days. Start this on 11/07 -- Prednisone 30 mg (3 tablets) x 2 days. -- Prednisone 20 mg (2 tablets) x 2 days -- Prednisone 10 mg (1 tablet) x 2 days - You were also started on Symbicort one puff twice a day. This is a maintenance inhaler and has long acting medicines and therefore you will take this every day EVEN ON DAYS YOUR BREATHING IS FINE - Also initiated Dina 60 mg twice a day and this medication is to help reduce symptoms of allergies which can ultimately flair your asthma - Will also give a prescription for a spacer to use with your inhaler. This helps get that medicine down in your lungs better then just using the inhaler by itself. - It might be good to try and keep a log of possible asthma triggers for you. If you are around things and notice you get more coughing/wheezing/shortness of breath these may be possible triggers for you - You were seen by a Pole Cutter (Lung Doctor) in the hospital and we have set you up with a follow-up appointment with them to monitor your progress -- Pulmonology w/ Ramón Esquivel PA-C on ThursdayNovember 11 at 11:15 am -- Can also request for ThursdayNovember 13 if needed depending on class schedule Anxiety/Depression: - Your Paxil was increased to 40 mg daily and a prescription was sent to your pharmacy Current Hospital Diet Patient's current hospital diet: Regular Diet Discharge Diet Recommended Diet: Regular Diet Pending Studies Studies pending at discharge: no Medical Emergencies . Who to Call and When: Medical Emergencies: If at any time you feel your situation is an emergency, please call 911 immediately. . Non-Emergent Contact Non-Emergency issues call your: Primary Care Provider Call Non-Emergent contact if: you have a fever, your pain is concerning you, you have any medication questions . . "Provider Documentation" section prepared by Natty Arshad. .
[2017-11-06] MEDS ORDERED: BUDESONIDE/FORMOTEROL FUMARATE 160/4.5 60 PUFFS/INHALER INH SCH (09:00)
[2017-11-06] MEDS ORDERED: PAROXETINE 20 MG TAB PO SCH (09:00)
[2017-11-06] MEDS: BuPROPion XL 150 MG TABCR PO SCH (09:06)
[2017-11-06] MEDS: FEXOFENADINE HCL 60 MG TAB PO SCH (09:06)
[2017-11-06] MEDS: PYRIDOXINE HCL 50 MG TAB PO SCH (09:07)
[2017-11-06] MEDS ORDERED: FERROUS SULFATE 325 MG TAB PO ONE (09:45)
[2017-11-06] MEDS ORDERED: FRRS300 PO (10:32)
[2017-11-06 10:38] VITALS: BP 133/83; PULSE 65; TEMP 36.9; O2SAT 96
[2017-11-06] MEDS ORDERED: PRD10 PO (11:04)
--- NOTE | 2017-11-06 11:37 | Discharge Summary ---
Discharge Summary Date of Service Nov 06, 2017. Discharge Summary Admission Date: Nov 03, 2017 at 20:01 Discharge Date: Nov 06, 2017 Discharge Disposition: Home Principal Diagnosis: Acute Respiratory Failure with Hypoxia 2/2 Status Asthmaticus Problems/Secondary Diagnoses: 1) Asthma - Mild, Intermittent until recently 2) Depression 3) Anxiety 4) H/O Anorexia Nervosa - states this mostly resolved in her mid teens Procedures: CHEST ONE VIEW PORTABLE FINDINGS: Cardiomediastinal and hilar silhouettes are within normal limits. No pneumothorax, pleural effusion, focal airspace consolidation or overt pulmonary edema. Bones of the chest appear grossly intact. Mild levoscoliosis of the lumbar spine is partially imaged. IMPRESSION: No acute process. Consultations: 1. Pulmonology Medication Reconciliation New Medications: Albuterol (Ventolin Hfa) 60 Puffs/5400 Mcg Aers 2 PUFFS INH QID PRN for SOB/Wheezing for 30 Days, #1 INHALER 1 Refill Prednisone (Prednisone) 10 Mg Tab 10 MG PO DAILY, #20 TABS Start on 11/07. Take 40 mg x 2 days then 30 mg x 2 days then 20 mg x 2 days then 10 mg x 2 days. Budesonide/Formoterol Fumarate (Symbicort 160-4.5 Mcg/Act) 60 Puffs/Inhaler Aero 1 PUFFS INH BID for 30 Days, #1 INHALER 1 Refill Ferrous Sulfate (Ferrous Sulfate) 325 Mg Tab 325 MG PO BID for 30 Days, #60 TAB Fexofenadine HCl (Fexofenadine HCl) 60 Mg Tab 60 MG PO BID for 30 Days, #60 TAB Changed Medications: Paroxetine (Paroxetine HCl) 40 Mg Tab 40 MG PO DAILY for 30 Days, #30 TABS (Changed from: Paroxetine (Paroxetine HCl) 20 Mg Tab 30 Mg PO DAILY) Continued Medications: Albuterol Sulf (Proventil 0.083% 2.5MG/3ML) 2.5 Mg/3 Ml Nebu 2.5 MG INH QID PRN for SOB/Wheezing for 30 Days, #1 BOX (This prescription has been renewed) Control Pills ( Control Pills) Tab 1 TAB PO DAILY, TAB Bupropion Hcl (Wellbutrin Xl) 150 Mg Tab 1 TAB PO QAM for 30 Days, #30 TAB 2 Refills Cholecalciferol (Vitamin D) Unknown Strength Tab 1 TAB PO DAILY Pyridoxine (Vitamin B6) 100 Mg Tab 100 MG PO DAILY, TAB Discharge Exam Review of Systems: Constitutional: No fever, No chills ENT: No nasal symptoms, No sore throat Respiratory: + cough, No sputum, No wheezing, No shortness of breath Cardiovascular: No chest pain, No palpitations Abdomen: No pain, No nausea, No vomiting, No diarrhea, No constipation Musculoskeletal: No swelling, No calf pain Genitourinary - Female: No dysuria, No urinary frequency Hematologic / Lymphatic: No abnormal bleeding/bruising Integumentary: No rash Physical Exam: General Appearance: WD/WN, no apparent distress, + thin Eyes: sclerae normal Neck: supple, no JVD, trachea midline Respiratory/Chest: lungs clear, normal breath sounds, no respiratory distress, no accessory muscle use Cardiovascular: regular rate, rhythm, no gallop, no murmur Abdomen / GI: normal bowel sounds, non tender, soft Extremities: no pedal edema Neurologic/Psychiatric: alert, oriented x 3 Skin: normal color, warm/dry Hospital Course ADMISSION: 22 y/o F Hx asthma, depression/anxiety. Presents with SOB, wheezing and was hypoxic on arrival to the ER. She has been struggling with asthma exacerbations for 4 months and states that prior to this period, her asthma was mild and had not normally required treatment. She responded partially to modalities provided in the ER but remains hypoxic without supplemental 02. She does not have a productive cough or fevers. She reports she relocated to [facility] approximately 4 months ago at the onset of her symptoms. HOSPITAL COURSE: Acute Hypoxic Respiratory Failure 2/2 Severe Persistent Asthma with Status Asthmaticus: IMPROVING - Oxygenating appropriately on RA and lungs clear without wheeze; Reporting not her baseline but has struggled with asthma x 4 months, prior to these last few months her asthma was mild and intermittent only requiring occasional rescue inhaler/neb use - Prednisone taper of 40 mg x 2 days, 30 mg x 2 days, 20 mg x 2 days, then 10 mg x 2 days and this is to start on 11/07 - Refilled Albuterol nebulizer solution and rescue inhaler; gave Rx for spacer - Started Symbicort 160/4.5 with 1 puff twice a day and Dina 60 mg BID - Pulmonology followed - will have F/U appointment next week to monitor progress - appt established with Ramón Esquivel Sinus Tachycardia 2/2 Nebs/Steroids and Anxiety: RESOLVED Anxiety/Depression: - Has H/O anorexia nervosa - resolved however BMI 18 - Wellbutrin 150 mg daily and Paxil was increased to 40 mg daily Iron Deficiency: - Will start ferrous sulfate 325 mg BID Disposition: - F/U with Ramón Esquivel PA-C with Pulmonary next week Total Time Spent: Greater than 30 minutes This includes examination of the patient, discharge planning, medication reconciliation, and communication with other providers. Discharge Instructions Please refer to the electronic Patient Visit Report (Discharge Instructions) for additional information. Additional Copies To [facility]
--- NOTE | 2017-11-06 14:42 | PULMONARY PROGRESS NOTE ---
DATE: 11/06/2017 PROBLEM LIST: Includes uncontrolled severe asthma exacerbation. SUBJECTIVE: The patient is feeling better today. She feels that her breathing is pretty much close to being back toward normal. She is not having any wheezing. No chest heaviness or tightness. No increased shortness of breath, no chest discomfort, no congestion. She is not having any other signs. She feels well. She feels like she can go home today. Her mother is here today as well and concurs the patient looks to be about at her normal level. OBJECTIVE: GENERAL: The patient is a 22-year-old female sitting up in her bed. She is alert and oriented x3. Mood is good. Affect is good. She is able to complete sentences without difficulty. No respiratory distress at this time. VITAL SIGNS: Temperature 36.9, pulse 65, respirations 16, Pulse ox is 96% on room air. HEENT: Normocephalic, atraumatic. Pupils equal, round and reactive to light and accommodation. Extraocular movements are intact. [place] moist gingival and buccal mucosa. NECK: Supple. No mass. No adenopathy or bruit. CHEST: Slight diminished breath sounds, but clear for the most part. There is no wheeze or rhonchi noted. CARDIOVASCULAR: Regular rate and rhythm. No murmurs, gallops, or rubs. ABDOMEN: Soft, nontender. No guarding, rigidity, or organomegaly. EXTREMITIES: No erythema or edema. NEUROLOGIC: Cranial nerves II-XII are intact. No focal deficit noted. DATA: No new imaging data. IMPRESSION: A 22-year-old female with uncontrolled asthma, came in with exacerbation at this time. She appears to be doing well and back to her baseline. We would like for her to continue the same course as an outpatient. We would also like for her to continue with nebulization. She will be discharged on a prednisone taper starting at 40 mg and tapering by 10 mg every 2 days. She does have an appointment set up. She is to contact our office, she is given the phone number if there are any problems prior to her followup visit. JONATHAN
[2017-11-06] MEDS ORDERED: FERROUS SULFATE 325 MG TAB PO SCH (21:00)
== END 2017-11-06 11:45 | disposition home or self-care (01) | DRG 189 ==
LOC: C.EDB 17:05 → C.MED 20:01 → ENRESERV 21:04
PROVIDERS: ADMIT Internal Medicine; ATTEND Internal Medicine
DX: J96.01 Acute respiratory failure with hypoxia (principal); J45.52 Severe persistent asthma with status asthmaticus; F41.9 Anxiety disorder, unspecified; E61.1 Iron deficiency; R00.0 Tachycardia, unspecified; Z79.3 Long term (current) use of hormonal contraceptives; Z79.899 Other long term (current) drug therapy